=== PATIENT | male | born 1935 | race Caucasian/White ===

== ENCOUNTER 2017-03-17 10:22 | Outpatient (CLI) | payer MEDICARE, BC ==
[2017-03-17 16:28] LABS: #Basophils 0.1 thou/uL (0.0-0.2); #Eosinphils 0.1 thou/uL (0.0-0.7); #Lymphocytes 1.9 thou/uL (1.20-3.40); #Monocytes 0.8 thou/uL (0.11-0.59); #Neutrophils 6.1 thou/uL (1.40-6.50); %Basophils 1.3 % (0.0-1.0); %Eosinophils 1.1 % (0.0-10.0); %Lymphocytes 21.1 % (21.0-51.0); %Monocytes 8.5 % (0.0-10.0); %Neutrophils 67.9 % (42.0-75.0); Hemoglobin 15.8 g/dL (14.0-18.0); Mean Corpuscular HGB CONC 33.4 g/dL (32.0-36.0); Mean Corpuscular Hemoglobin 31.5 pg (27.0-31.0); Mean Corpuscular Volume 94.2 fl (80.0-94.0); Mean Platelet Volume 8.6 fL (7.4-10.4); Platelet Count 179 thou/uL (130-400); RBC Distribution Width 12.3 % (11.5-14.5); Red Blood Cell (RBC) Count 5.02 mill/uL (4.70-6.10); White Blood Cell (WBC) Count 8.9 thou/uL (4.8-10.8)
[2017-03-17 16:40] LABS: ALT (SGPT) 22 U/L (8-55); AST (SGOT) 21 U/L (5-34); Alkaline Phosphatase 87 U/L (40-150); Anion Gap 15 mmol/L (10-20); BUN (Urea Nitrogen) 20 mg/dL (8.4-25.7); Calc. Creatinine Clearance 0 mL/min (70-130); Calcium 10.1 mg/dL (7.8-10.44); Carbon Dioxide 23 mmol/L (23-31); Cardiac Risk 6.4 (Less than 4.5); Chloride 107 mmol/L (98-107); Cholesterol 166 mg/dl (< 200 Desired); Estimated GFR-MDRD 72; Globulin 2.8 g/dL (2.4-3.5); Glucose 105 mg/dL (83-110); HDL Cholesterol 26 mg/dL (>60 Neg Risk); LDL Cholesterol, Calculated 63 mg/dL; Protein, Total 6.8 g/dL (5.8-8.1); Sodium 140 mmol/L (136-145); Triglycerides 383 mg/dL (Less than 150)
== END 2017-03-17 10:23 | disposition home or self-care (01) ==
LOC: LABLEX 10:22
PROVIDERS: ATTEND Family Medicine
DX: E03.9 Hypothyroidism, unspecified (principal); E78.1 Pure hyperglyceridemia; E78.5 Hyperlipidemia, unspecified; I10 Essential (primary) hypertension
CPT/HCPCS: 80053; 80061; 84443; 85025

== ENCOUNTER 2017-10-29 10:28 | Emergency (ER) | payer MEDICARE, BC ==
[2017-10-29] MEDS ORDERED: Adacel (T-DAP) 0.5 ML VIAL ONE (10:50)
[2017-10-29] MEDS ORDERED: Sulfameth/Trimethoprim DS 800-160mg TAB ONE (10:50)
== END 2017-10-29 11:01 | disposition home or self-care (01) ==
LOC: BURERS 10:28
DX: S61.452A Open bite of left hand, initial encounter (principal); L08.9 Local infection of the skin and subcutaneous tissue, unspecified; E78.5 Hyperlipidemia, unspecified; I25.10 Atherosclerotic heart disease of native coronary artery without angina pectoris; I10 Essential (primary) hypertension; Z87.891 Personal history of nicotine dependence; Z23 Encounter for immunization; W55.01XA Bitten by cat, initial encounter
CPT/HCPCS: 90471; 90715

== ENCOUNTER 2018-05-13 21:38 | Inpatient (IN) | payer MEDICARE, BC ==
[2018-05-13 22:14] LABS: CO2 Tension (PvCO2) 27.7 mmHg (41.0-51.0); pH (Venous) 7.422 (7.35-7.45)
[2018-05-13 22:15] LABS: Base Excess-Venous -4.7 mmol/L (0 (+/- 2.5)); Hemoglobin - Calc 16.6 g/dL (12.0-18.0); O2 Tension (PvO2) 24.9 mmHg (35.0-45.0); vO2 Saturation-calc 48.1 % (94-98)
[2018-05-13 22:16] LABS: Calcium, Ionized 1.19 mmol/L (1.12-1.32); Potassium 3.8 mmol/L (3.4-4.7); T. Carbon Dioxide 18.9 mmol/L (1.0-85.0)
--- NOTE | 2018-05-13 22:26 | RAD ---
PORTABLE CHEST: 05/13/18 HISTORY: Dyspnea. COMPARISON: 03/25/09 study. Heart size within normal limits. Postop sternotomy changes are present. There is some minimal interst itial changes in the left base. This could represent chronic change but was not present on the prior exam. Could represent some minimal interstitial infiltrate. IMPRESSION: Interstitial changes in the left base which could represent early infiltrate. POS: [facility]
[2018-05-13 22:27] LABS: ALT (SGPT) 32 U/L (8-55); AST (SGOT) 35 U/L (5-34); Albumin 3.5 g/dL (3.4-4.8); Alkaline Phosphatase 91 U/L (40-150); Anion Gap 19 mmol/L (10-20); BUN (Urea Nitrogen) 25 mg/dL (8.4-25.7); Bilirubin, Total 1.7 mg/dL (0.2-1.2); Calc. Creatinine Clearance 0 mL/min (70-130); Calcium 10.2 mg/dL (7.8-10.44); Carbon Dioxide 17 mmol/L (23-31); Chloride 99 mmol/L (98-107); Estimated GFR-MDRD 47; Globulin 3.2 g/dL (2.4-3.5); Glucose 158 mg/dL (83-110); Potassium 4.1 mmol/L (3.5-5.1); Protein, Total 6.7 g/dL (5.8-8.1); Sodium 131 mmol/L (136-145)
[2018-05-13 22:29] LABS: CKMB 1.3 ng/mL (0-6.6); Troponin I 0.064 ng/mL (< 0.028)
[2018-05-13 22:35] LABS: Mean Corpuscular HGB CONC 34.3 g/dL (32.0-36.0); Mean Corpuscular Hemoglobin 31.8 pg (27.0-31.0); Mean Corpuscular Volume 92.6 fL (78.0-98.0); Mean Platelet Volume 9.7 fL (7.4-10.4); Platelet Count 163 thou/uL (130-400); RBC Distribution Width 12.4 % (11.5-14.5); Red Blood Cell (RBC) Count 4.73 mill/uL (4.70-6.10); White Blood Cell (WBC) Count 13.7 thou/uL (4.8-10.8)
[2018-05-13 22:36] LABS: PLT Morphology Comment Appears Adequate; RBC Morphology Normal
--- NOTE | 2018-05-13 23:29 | CT ---
CT OF ABDOMEN AND PELVIS PERFORMED WITH CONTRAST ENHANCEMENT: 05/13/18 HISTORY: Hypertension. Coronary artery disease. Abdominal pain, nausea and vomiting. The lung bases show some ground glass interstitial type infiltrate within the left lower lobe. Small left pleural effusion is present. The liver and spleen show no focal abnormalities. The gallbladder h as been removed. The pancreas shows no mass or ductal dilatation. Right and left adrenal glands are normal. A hypodensity involving the right kidney has CT numbers sug gestive of a cyst. There are bilateral nonobstructing renal calculi. On the right the largest of thes e calculi measures as much as 14 mm in size and 12 mm on the left side. No obstruction. There is an i nfrarenal abdominal aortic aneurysm present. It measures 4 cm. It tapers at the bifurcation. No signi ficant periaortic or mesenteric adenopathy. No evidence of bowel obstruction. CT OF PELVIS PERFORMED WITH CONTRAST ENHANCEMENT: There is an outpouching along the right side of the abdomen lower midline which appears to be related to more of a ventral hernia. There does appear to be a very thin outer fascia. The outer fascia is s till intact. There is marked atrophy of the abdominal wall musculature. CT OF PELVIS PERFORMED WITH CONTRAST ENHANCEMENT: Sigmoid diverticulosis is noted without any inflammatory change. The appendix is more retrocecal in l ocation and normal in size. Marked arthritic changes of the spine and hips are present. IMPRESSION: 1. Ground class infiltrate in the left lower lobe. 2. Nonobstructing bilateral renal calculi. 3. Postop cholecystectomy change. 4. 4 cm infrarenal abdominal aortic aneurysm. 5. Postop prostatectomy change. Other incidental findings as noted above. POS: [facility]
[2018-05-13 23:48] LABS: Troponin I 0.089 ng/mL (< 0.028)
[2018-05-14] MEDS ORDERED: Azithromycin 500 MG VIAL ONE (01:05)
[2018-05-14] MEDS ORDERED: cefTRIAXone\\ROCEPHIN 1 GM VIAL ONE ×2 (01:05→01:06)
[2018-05-14 01:08] LABS: Band 12 % (5-11); Lymphocytes 3 % (21-51); MDiff Complete? YES; Monocytes 9 % (0-10); Neutrophil 76 % (42-75)
[2018-05-14 02:43] VITALS: BMI 26.6
[2018-05-14 06:05] LABS: Troponin I 0.063 ng/mL (< 0.028)
[2018-05-14] MEDS: Sodium Chloride 0.9% 1,000 ML IV SCH ×2 (07:05→12:17)
[2018-05-14] MEDS ORDERED: Prevnar 13-Val Conj/PF 0.5 ML SYRINGE IM ONE (09:00)
[2018-05-14] MEDS ORDERED: Bisacodyl 5 MG TAB PO PRN (09:18)
[2018-05-14] MEDS ORDERED: Milk Of Magnesia 30 ML UDCUP PO PRN (09:18)
[2018-05-14] MEDS ORDERED: Acetaminophen 325 MG TAB PO PRN (09:18)
[2018-05-14 15:05] LABS: Band 2 % (5-11); Hemoglobin 13.8 g/dL (14.0-18.0); Lymphocytes 8 % (21-51); MDiff Complete? YES; Mean Corpuscular HGB CONC 33.2 g/dL (32.0-36.0); Mean Corpuscular Hemoglobin 31.2 pg (27.0-31.0); Mean Corpuscular Volume 93.9 fL (78.0-98.0); Mean Platelet Volume 9.6 fL (7.4-10.4); Monocytes 5 % (0-10); Neutrophil 85 % (42-75); Platelet Count 177 thou/uL (130-400); RBC Distribution Width 12.6 % (11.5-14.5); Red Blood Cell (RBC) Count 4.42 mill/uL (4.70-6.10); White Blood Cell (WBC) Count 11.3 thou/uL (4.8-10.8)
--- NOTE | 2018-05-14 18:06 | RAD ---
TWO VIEWS OF THE CHEST: COMPARISON: 05/13/18. HISTORY: Crackles in the lung bases. Elevated heart rate and respiratory rate. FINDINGS: Two views of the chest show normal sized cardiomediastinal silhouette. There is no evidence of consol idation, mass, or pleural effusion. Degenerative changes are seen in the spine and shoulders. IMPRESSION: No evidence of acute cardiopulmonary disease. POS: [facility]
[2018-05-14 19:22] VITALS: BP 127/60; TEMP 98.6
--- NOTE | 2018-05-14 20:46 | HP ---
CHIEF COMPLAINT: Nausea, vomiting, diarrhea with weakness. HISTORY OF PRESENT ILLNESS: The patient is an 83-year-old white male, who presented to the emergency room with a 4-5 day history of generalized weakness with nausea, vomiting, and diarrhea. The patien t on the day prior to presenting to the emergency room he began progressively weaker. He felt like h is legs were giving out and he had to sit down on the floor. He had no loss of consciousness, just f elt extremely weak and tired and had no chest pain, back pain, fevers nor chills. No significant cou gh reported, but his symptoms above progressively became worse and thus his caregivers brought him to the emergency room for evaluation. PAST MEDICAL HISTORY: Significant for coronary artery disease status post CABG, hyperlipidemia, hype rtension, and benign prostatic hypertrophy. PAST SURGICAL HISTORY: Includes a CABG in the several years in the past, prostate removal, history o f back surgery, history of cholecystectomy, and history of bilateral carpal tunnel surgery. MEDICATIONS: Include aspirin 81 mg daily, Tenormin 25 mg daily, atorvastatin 40 mg daily, , lev othyroxine 88 mcg daily. ALLERGIES: The patient reports allergy to PENICILLIN and distant past causing a rash. SOCIAL HISTORY: The patient denies alcohol or drug use. He is a former smoker, but quit many years ago. He is and lives alone and has a next door neighbors, who are his caregivers. The patie nt denies any history of depression. REVIEW OF SYSTEMS: Other than HPI, the patient denies any sore throat, no URI-like symptoms, no sign ificant cough. He is unsure if he has any significant weight loss nor weight gain. He has had some diffuse abdominal discomfort with nausea and one episode of emesis the day prior to admission. No co ffee ground emesis reported. No melena reported as well. The patient denies any dysuria, hematuria or change in urinary frequency. No significant lower extremity edema reported. No rashes or lesions and patient has no increased back pain over his baseline. PHYSICAL EXAMINATION: GENERAL: Elderly white male, alert and oriented x3. VITAL SIGNS: On admission, blood pressure was 142/88, respiratory rate was 22, and O2 sat 93% on blaine m air. HEENT: Atraumatic, normocephalic. Extraocular movements are intact. Pupils are equal, round, and r eactive to light and accommodation. Oropharynx, mucous membranes moist, no active discharge or lesio ns. NECK: Supple. No masses palpated. CHEST: Rales in the left base. HEART: Regular rate and rhythm. ABDOMEN: Soft. Bowel sounds are hypoactive in all 4 quadrants. No tenderness to palpation noted. EXTREMITIES: No cyanosis, clubbing, or edema. BACK: No CVA, no vertebral tenderness. LABORATORY AND X-RAY FINDINGS: On admission, CBC: White count 13,700 with an H and H of 15 and 43.8 . A chest x-ray showed a left lower lobe infiltrate. CT scan of the abdomen and pelvis, which was o rdered by the emergency room physician also confirmed left lower lobe infiltrate. Chemistries in the emergency room, the patient's sodium is 133. He had initial troponin 0.064 and a BNP of 28.2. ASSESSMENT AND PLAN: 1. Pneumonia. The patient was placed on Rocephin and Zithromax for community-acquired pneumonia. H e was given IV fluids 1 liter of normal saline in the emergency room. We will continue to 100 mL an hour. The patient did appear slightly dehydrated with an initial creatinine of 1.43, BUN was normal at 25. 2. History of coronary artery disease. The patient will be placed on his routine medications. At t his time, he has no sign of acute coronary events. He may have some slight demand ischemia causing a slightly elevated troponin. We will watch for any signs of progressing and repeat the troponin. 3. Hypertension, controlled. 4. Hyperlipidemia. Patient is on lipid lowering agent. 5. Disposition: The patient wishes to be a DNR, but this time, he and family do want a fairly aggre ssive measures short of intubation and ACLS type resuscitation. ADDENDUM: After being admitted to the hospital on the afternoon of 05/14/2018, the patient was noted by staff to become tachypneic, respiratory rate in the high 20s in the low 30s. He developed a feve r of 102, axillary in addition to tachypnea. He was placed on oxygen and required 2 liters nasal can nula to keep an O2 saturation of 94%, blood pressure dropped from 148/126 systolic while on IV fluids . Blood work was obtained. The patient underwent a lactic acid level, which was 3.3. Due to patien t's signs of progression into sepsis even with treatment of IV fluids and initial antibiotics, case w as discussed with Dr. To Gillis Hospitalist at [facility] and is deemed appr opriate to transfer the patient to a higher level of care to telemetry. He will be transferred via [facility]. He will continue his IV fluids and further orders by accepting physician hospitalist at [facility].
[2018-05-14] MEDS ORDERED: Azithromycin 500 MG in Sodium Chloride 0.9% 250 ML 250 ML IVPB SCH (22:00)
[2018-05-14] MEDS ORDERED: cefTRIAXone\\ROCEPHIN 1 GM in Sodium Chloride 0.9% 100 ML IVPB SCH (22:00)
[2018-05-15] MEDS ORDERED: Levothyroxine Sodium 88 MCG TAB PO SCH (06:00)
[2018-05-15] MEDS ORDERED: Fenofibrate Nanocrystallized 145 MG TAB PO SCH (09:00)
[2018-05-15] MEDS ORDERED: Atenolol 50 MG TAB PO SCH (09:00)
[2018-05-15] MEDS ORDERED: Atorvastatin Calcium 40 MG TAB PO SCH (09:00)
== END 2018-05-14 18:25 | disposition short-term general hospital (02) | DRG 871 ==
LOC: BURERS 21:38 → BURMED 05-14 00:15 → UNDOADMIN 05-14 01:01
PROVIDERS: ADMIT Family Medicine; ATTEND Family Medicine
DX: A41.9 Sepsis, unspecified organism (principal); J18.9 Pneumonia, unspecified organism; I24.8 Other forms of acute ischemic heart disease; I25.10 Atherosclerotic heart disease of native coronary artery without angina pectoris; Z95.1 Presence of aortocoronary bypass graft; E78.5 Hyperlipidemia, unspecified; I10 Essential (primary) hypertension; N40.0 Benign prostatic hyperplasia without lower urinary tract symptoms; Z87.891 Personal history of nicotine dependence; E86.0 Dehydration; Z66 Do not resuscitate; Z91.81 History of falling; R19.7 Diarrhea, unspecified
CPT/HCPCS: 36415; 71045; 71046; 74177; 80053; 82274; 82330; 82553; 82803; 83605; 83880; 84484; 85025; 87040; 93005; 96361; 96365; 96375; A4216; J0456; J0696